=== PATIENT | male | born 1975 | race Caucasian/White ===

== ENCOUNTER → 2018-07-07 | Emergency (ER) | payer OTHER ==
[~2018-07-07] VITALS: Ht 182.9 cm; Wt 98.4 kg
== END | disposition left against medical advice (07) ==
LOC: ER 19:13
DX: S01.82XA Laceration with foreign body of other part of head, initial encounter (principal); W26.8XXA Contact with other sharp object(s), not elsewhere classified, initial encounter; Y93.89 Activity, other specified; Y92.89 Other specified places as the place of occurrence of the external cause; Y99.8 Other external cause status